=== PATIENT | female | born 1945 | race Caucasian/White ===

== ENCOUNTER 2017-02-02 20:16 | Emergency (ER) | payer OTHER ==
[~2017-02-02] VITALS: Ht 177.8 cm; Wt 132.0 kg
[~2017-02-02 20:16] MED LIST: ADULT LOW DOSE81 MG PO; AMBEREN PO; ASPIRIN EC325 M1 PO; ASPIRIN EC81 M1 PO; COUMADIN 4 MG TA4 M1; COUMADIN 5 MG TA5 M1 PO; COZAAR 50 MG TA50 M1 PO; EFFIENT10 MG PO; FISH OIL 1,0001 EAC5 PO; FISHOIL PO; GLIPIZIDE-METF1 EAC1 PO; KEFLEX500 MG PO; LANTUSSOLASTAR SUBQ; LEVOXYL PO; LEVOXYL75 MCG PO; LIPITOR40 MG PO; LOPRESSOR 50 MG50 M1 PO; LOVASTATIN PO; MULTIVITAMINS PO; NITROGLYCERIN0.4 MG SL; NOVOLOG100 UNIT/1 SUBQ; PERCOCET 5-3251 EACH PO; STOOL SOFTENER50 MG PO; TAMSULOSIN HCL0.4 M1 PO; VITAMIN D1000 UNI1 PO; ZOCOR 20 MG TAB20 M1 PO
[2017-02-02 20:55] LABS: ABSOLUTE NEUTROPHILS 7.6 thou/uL (1.4-8.2); BASOPHILS 0.9 % (0.0-2.0); EOSINOPHILS 0.7 % (0.0-3.0); HEMOGLOBIN 13.5 gm/dL (12.0-15.0); LYMPHOCYTES 13.1 % (24.0-44.0); MCH 32.9 pg (26.0-34.0); MCHC 33.9 g/dL (28.0-37.0); MCV 97.2 fL (80.0-100.0); MONOCYTES 8.5 % (1.0-8.0); PLATELET COUNT 212 thou/uL (150-400); POLYS 76.8 % (36.0-66.0); RBC 4.12 mil/uL (4.20-5.00); RDW 13.5 % (10.5-14.5); WBC 9.8 thou/uL (4.0-11.0)
[2017-02-02 20:56] LABS: MANUAL DIFF NO
[2017-02-02 21:14] LABS: CALCIUM 9.1 mg/dL (8.5-10.1); CREATININE 1.2 mg/dL (0.6-1.0)
[2017-02-02 21:18] LABS: ALBUMIN 3.5 g/dL (3.4-5.0); TOTAL BILIRUBIN 1.4 mg/dL (<0.1-1.0); TOTAL PROTEIN 7.7 g/dL (6.4-8.2)
[2017-02-02] MEDS ORDERED: GLIPIZIDE 10 MG10 MG PO (21:55)
[2017-02-02] MEDS ORDERED: OXYBUTYNIN 5 MG5 M2 PO (21:55)
[2017-02-02 21:57] LABS: URINE BILIRUBIN NEGATIVE (Negative); URINE BLOOD 3+ (Negative); URINE COLOR YELLOW; URINE GLUCOSE-RANDOM* 3+ (Negative); URINE KETONES 2+ (Negative); URINE LEUKOCYTES-REFLEX TRACE (Negative); URINE PROTEIN (DIPSTICK) 1+ (Negative); URINE UROBILINOGEN 0.2 E.U./dl (0.2-1.0)
[2017-02-02 22:11] LABS: SQUAMOUS 4-10 Moderate /LPF (0-3)
[2017-02-02 22:14] LABS: CASTS None Seen /LPF (None Seen); CRYSTALS None Seen /LPF (None Seen); URINE RBC >20 Many /HPF (0-2)
[2017-02-02 22:15] LABS: URINE WBC-REFLEX 0-5 Rare /HPF (0-5)
[2017-02-02] MEDS ORDERED: NORCO 5-325 TA1 EACH PO (23:32)
[2017-02-02] MEDS ORDERED: SENOKOT-S1 TA1 PO (23:32)
[2017-02-02] MEDS ORDERED: FLOMAX0.4 MG PO (23:32)
[2017-02-02] MEDS ORDERED: ZOFRAN4 MG PO (23:32)
== END 2017-02-02 23:48 | disposition home or self-care (01) ==
LOC: ER 20:16
PROVIDERS: Emergency Medicine
DX: N20.1 Calculus of ureter (principal); E11.9 Type 2 diabetes mellitus without complications; E78.00 Pure hypercholesterolemia, unspecified; I10 Essential (primary) hypertension; Z79.4 Long term (current) use of insulin; Z95.5 Presence of coronary angioplasty implant and graft; Z90.49 Acquired absence of other specified parts of digestive tract; Z96.652 Presence of left artificial knee joint; Z85.828 Personal history of other malignant neoplasm of skin